=== PATIENT | male | born 1970 | race Two or more races ===

== ENCOUNTER 2021-02-20 20:28 | Inpatient (IN) | payer OTHER ==
[~2021-02-20] VITALS: Ht 172.7 cm; Wt 61.2 kg
--- NOTE | 2021-02-20 20:38 | NUR ---
PATIENT ER BED 8 C/O ABNORMAL LABSLOW HGB FROM [facility]. PATIENT'S EYES ARE OPEN, PATIENT IS NON RESPONSIVE TO VERBAL COMMANDS. PATIENT IS DNR. PATIENT IS BREATHING ON VENTILATOR W/ SETTINGS 16A/C 500TV 40% FIO02 5 PEEP. PATIENT IS CONNECTED TO THE RETAIL TEAM LEADER.
--- NOTE | 2021-02-20 20:57 | NUR ---
blood collected and sent to the lab
[2021-02-20 21:24] LABS: BASOPHILS % (AUTO) 0.3 % (0.0-2.0); LYMPHOCYTES # (AUTO) 1.5 /CMM (0.8-4.8); LYMPHOCYTES % (AUTO) 12.9 % (20.0-44.0); MEAN CORPUSCULAR HGB CONC 31 g/dl (31.0-36.0); MEAN CORPUSCULAR VOLUME 100 fL (80-96); MONOCYTES # (AUTO) 0.4 /CMM (0.1-1.30); MONOCYTES % (AUTO) 3.3 % (2.0-12.0); NEUTROPHILS # (AUTO) 9.7 /CMM (1.8-8.9); NEUTROPHILS % (AUTO) 80.5 % (43.0-81.0); PLATELET COUNT (AUTO) 200 /CMM (150-450)
[2021-02-20 21:30] LABS: HEMATOCRIT 20 % (39-51); RED BLOOD CELL COUNT(AUTO) 1.95 MIL/uL (4.5-6.0)
[2021-02-20 21:40] LABS: CARBON DIOXIDE 36 mmol/L (21-32); CHLORIDE 122 mmol/L (98-107); CREATININE 4.6 mg/dL (0.6-1.3); GLUCOSE 105 mg/dL (74-106)
[2021-02-20 21:42] LABS: ALBUMIN 1.9 g/dL (3.4-5.0); BILIRUBIN,DIRECT 0.2 mg/dL (0.0-0.2); BILIRUBIN,TOTAL 0.4 mg/dL (0.2-1.0); TOTAL PROTEIN, SERUM 7.4 g/dL (6.4-8.2)
[2021-02-20 21:46] LABS: BAND % (MANUAL) 9 % (0.0-5.0); CALCIUM, SERUM 13.4 mg/dL (8.5-10.1); EOSINOPHILS % (MANUAL) 3 % (0-4); LYMPHOCYTES % (MANUAL) 9 % (16-48); MONOCYTES % (MANUAL) 3 % (0-11.0); NEUTROPHILS % (MANUAL) 76 (42-76); POTASSIUM 7.3 mmol/L (3.5-5.1); SODIUM SERUM 165 mmol/L (136-145); UREA NITROGEN, BLOOD 190 mg/dL (7-18)
[2021-02-20] MEDS ORDERED: FUROSEMIDE 20 MG/2 ML VIAL ONE (21:58)
[2021-02-20] MEDS ORDERED: SODIUM BICARBONATE SYR 50 MEQ/50 ML DISP.SYRIN ONE (21:59)
[2021-02-20] MEDS ORDERED: SODIUM POLYSTYRENE SULFONATE 15 G/60 ML BOTTLE ONE (21:59)
[2021-02-20] MEDS ORDERED: SODIUM POLYSTYRENE SULFONATE 15 G/60 ML BOTTLE GT ONE (22:00)
[2021-02-20] MEDS ORDERED: CALCIUM CHLORIDE 1,000 MG/10 ML DISP.SYRIN IV ONE (22:00)
[2021-02-20] MEDS ORDERED: SODIUM BICARBONATE SYR 50 MEQ/50 ML DISP.SYRIN IV ONE (22:00)
[2021-02-20] MEDS ORDERED: FUROSEMIDE 40 MG/4 ML VIAL IV ONE (22:00)
[2021-02-20] MEDS ORDERED: CALCIUM CHLORIDE 1,000 MG/10 ML DISP.SYRIN ONE (22:06)
[2021-02-20] MEDS ORDERED: IV NS 0.9% 1,000 ML IV ONE (23:30)
[2021-02-21] VITALS (27 sets, daily range): BP systolic 45–132; BP diastolic 20–76
--- NOTE | 2021-02-21 00:35 | NUR ---
1 bag of PRBC RUNNING.
[2021-02-21] MEDS ORDERED: ACETAMINOPHEN 325 MG TABLET PO PRN (01:00)
[2021-02-21] MEDS ORDERED: MAGNESIUM HYDROXIDE 30 ML UDC PO PRN (01:00)
[2021-02-21] MEDS ORDERED: ZOLPIDEM TARTRATE 5 MG TABLET PO PRN (01:00)
[2021-02-21] MEDS ORDERED: HYDROCODONE/APAP 5/325MG TABLET PO PRN (01:00)
[2021-02-21] MEDS ORDERED: Z GUARD REMEDY 2 OZ OINT TP PRN (01:00)
[2021-02-21] MEDS ORDERED: MAG HYDROX/AL HYDROX/SIMETH 30 ML UDC PO PRN (01:00)
[2021-02-21] MEDS ORDERED: ONDANSETRON HCL/PF 4 MG/2 ML VIAL IVP PRN (01:00)
--- NOTE | 2021-02-21 01:22 | NUR ---
REPORT GIVEN TO TITA WILLS FOR KATJA.
[2021-02-21] MEDS ORDERED: VANCOMYCIN 1 GM in IV D5W 250ml IV ONE (01:30)
--- NOTE | 2021-02-21 01:40 | NUR ---
RECEIVED PT FROM ER VIA [facility] OBTUNDED ON TRACH/VENT SETTING PER MD, SPO2 98% NO SIGN OF SOB OR DISTRESS WITH ONGOING IPRBC TRANSFUSING VIA RFA #18 INFUSING WELL, SAFELY TRANSFER FROM [facility] TO BED V/S CHECKED AND RECORDED, HEAD TO TOE ASSESSMENT DONE WOUND NOTED AND DOCUMENTED, HOOKED TO TELE MONITOR WITH READING SINUS TACHY 100'S INITIAL ASSESSMENT DONE DUKES CATHETER INSERTED NOTED CLOUDY YELLOW WITH SEDIMENT URINE DRAINING VIA GRAVITY, BED ON LOWEST POSITION AND LOCKED SIDE RAILS UP X 2 CALL LIGHT WITHIN REACH WILL CONT TO MONITOR
[2021-02-21] MEDS ORDERED: VANCOMYCIN 1 GM VIAL ONE (02:22)
--- NOTE | 2021-02-21 04:00 | NUR ---
COMPLETED BLOOD TRANSFUSION WITH LATEST V/S 130/76 HR 102 TEMP 98 RR 19 NO SIGN OF ANY TRANSFUSION REACTION NOTED WILL CONT TO MONITOR
[2021-02-21] MEDS ORDERED: JEVITY 1.2 CAL 1,000 ML BOTTLE GT PRN ×2 (04:30→08:26)
[2021-02-21] MEDS ORDERED: EMTR1TAB12 GT (04:48)
[2021-02-21] MEDS ORDERED: THIA100T74 GT (04:48)
[2021-02-21] MEDS ORDERED: ASCO500T21 GT (04:48)
[2021-02-21] MEDS ORDERED: FERR325T23 GT (04:48)
[2021-02-21] MEDS ORDERED: DOCU100C36 GT (04:48)
[2021-02-21] MEDS ORDERED: MULT-754 GT (04:48)
[2021-02-21] MEDS ORDERED: CHLO473M5 MM (04:48)
[2021-02-21] MEDS ORDERED: DOLU50TA GT (04:48)
[2021-02-21] MEDS ORDERED: ERYTHROCIN OP (04:48)
[2021-02-21] MEDS ORDERED: [UNRECOGNIZED DRUG - OTHER] GT (04:48)
[2021-02-21] MEDS ORDERED: POLY17PO4 GT (04:48)
[2021-02-21] MEDS ORDERED: HEPA0.5D3 SQ (04:48)
[2021-02-21] MEDS ORDERED: FLUC200T8 GT (04:48)
[2021-02-21] MEDS ORDERED: CEFEPIME 2 GM in IV D5W 100 ML IV SCH (05:00)
[2021-02-21] MEDS ORDERED: CEFEPIME 2 GM in IV D5W 100 ML IV ONE (05:00)
[2021-02-21] MEDS ORDERED: CEFEPIME 1 GM VIAL ONE (05:55)
[2021-02-21 05:56] LABS: BASOPHILS % (AUTO) 0.3 % (0.0-2.0); EOSINOPHILS % (AUTO) 5.1 % (0.0-6.0); HEMATOCRIT 23 % (39-51); HEMOGLOBIN 7.2 g/dL (13.5-17.5); LYMPHOCYTES # (AUTO) 1.6 /CMM (0.8-4.8); LYMPHOCYTES % (AUTO) 13.9 % (20.0-44.0); MEAN CORPUSCULAR HGB CONC 31 g/dl (31.0-36.0); MEAN CORPUSCULAR VOLUME 96 fL (80-96); MONOCYTES # (AUTO) 0.3 /CMM (0.1-1.30); MONOCYTES % (AUTO) 2.4 % (2.0-12.0); NEUTROPHILS % (AUTO) 78.3 % (43.0-81.0); PLATELET COUNT (AUTO) 180 /CMM (150-450); RED BLOOD CELL COUNT(AUTO) 2.41 MIL/uL (4.5-6.0); WHITE BLOOD COUNT (AUTO) 11.5 K/uL (4.3-11.0)
[2021-02-21 06:37] LABS: CALCIUM, SERUM 12.8 mg/dL (8.5-10.1); CREATININE 4.7 mg/dL (0.6-1.3); PHOSPHORUS 7.7 mg/dL (2.5-4.9)
--- NOTE | 2021-02-21 07:40 | NUR ---
RN NOTES RECEIVED PATIENT IN BED, PATIENT IS OBTUNDED OPENS EYES. WITH NO SIGNS OF DISTRESS ON VET SETTINGS SHILEY #8 AC 16 TV 500 FIO2 40% PEEP 5 AND SPO2 100%. PT ON EXTERNAL TELE MONITOR WITH CURRENT READING ST 100'S. IVL UA AND R FA SL. G-TUBE INTACT FEEDING JEVITY 1.2 AT 40 ML/HR. SAFETY MEASURES IN PLACE: BED IN LOWEST LOCKED POSITION W/ SR UP X2, CALL LIGHT W/IN REACH. WILL CONTINUE TO MONITOR.
[2021-02-21 07:57] LABS: POTASSIUM 7.2 mmol/L (3.5-5.1)
[2021-02-21 07:58] LABS: MAGNESIUM 4.5 mg/dL (1.8-2.4)
[2021-02-21] MEDS ORDERED: SODIUM POLYSTYRENE SULFONATE 15 G/60 ML BOTTLE PO ONE (09:00)
[2021-02-21] MEDS ORDERED: INSULIN REGULAR, HUMAN 100 UNIT/ML 10 ML VIAL IV ONE ×2 (09:00→14:30)
[2021-02-21] MEDS ORDERED: ALBUTEROL FS 2.5 MG/3 ML VIAL.NEB NEB ONE ×2 (09:00→18:30)
[2021-02-21] MEDS ORDERED: Calcium Gluconate 1GM/10ML 4.65 MEQ in IV D5W 50 ML IV ONE (09:30)
[2021-02-21] MEDS ORDERED: IV 1/2NS 1000 ML 1,000 ML IV STA (09:36)
[2021-02-21] MEDS ORDERED: IV D5W 1,000 ML IV STA (09:36)
[2021-02-21 09:47] LABS: ABG BASE EXCESS 7.7 mmol/L; ABG OXYGEN SATURATION 96.5 % (92.0-98.5); ABG PCO2 44.7 mmHg (35.0-45.0); ABG PH 7.473 (7.350-7.450); ABG PO2 94.3 mmHg (75.0-100.0); AaDO2 139.5 mmHg; COHb 0.8 % (0.5-1.5); MetHb 0.3 % (0.0-1.5); O2Hb 95.4 % (94.0-97.0); PEEP,BG 5 cm H2O; SITE, ABG Right Radial; VT, ABG 500 mL
[2021-02-21] MEDS ORDERED: NEPRO 1,000 ML BOTTLE GT SCH (10:00)
[2021-02-21 13:25] LABS: CALCIUM, SERUM 12.3 mg/dL (8.5-10.1); CREATININE 4.9 mg/dL (0.6-1.3)
[2021-02-21 13:32] LABS: POTASSIUM 7.9 mmol/L (3.5-5.1)
[2021-02-21] MEDS: ALBUTEROL FS 2.5 MG/0.5 ML VIAL.NEB NEB SCH ×3 (13:51→19:49)
--- NOTE | 2021-02-21 14:10 | NUR ---
PER DR. OROZCO, RECEIVED TELEPHONE CONSENT FROM FAMILY MEMBER TO PROCEED WITH THE HD CATH.
--- NOTE | 2021-02-21 14:13 | NUR ---
CALLED DR. OROZCO FOR POTASSIUM CRITICAL LEVEL. ORDERS WERE GIVEN.
[2021-02-21] MEDS ORDERED: ALBUTEROL FS 2.5 MG/3 ML VIAL.NEB NEB STA (14:22)
[2021-02-21] MEDS ORDERED: DEXTROSE 50%-WATER 50 ML DISP.SYRIN IVP ONE ×3 (14:30→19:30)
[2021-02-21] MEDS ORDERED: Sodium Bicarbonate 100 MEQ in IV NS 0.9% 1,000 ML IV PRN (14:30)
--- NOTE | 2021-02-21 14:30 | NUR ---
GAVE BEDSIDE REPORT TO ICU NURSE ABHIJEET FOR CONTINUITY OF CARE WAS TRANSFERRED TO ICU VIA GURNEY.
[2021-02-21] MEDS ORDERED: SODIUM BICARBONATE SYR 50 MEQ/50 ML DISP.SYRIN IV STA (14:32)
--- NOTE | 2021-02-21 14:50 | NUR ---
RN NOTES RECEIVED PATIENT IN ICU ON BED, IN ROOM 261, PT IS VENT/ TRACH DEPENDENT, TOLERATING VENT SETTING WELL, O2 SAT WNL, T=100 AXILLARY, LOW BP NOTIFIED, ORDER RECEIVED FOR LEVO DRIP , ON TELE ST HR IN 110'S, DUKES DRAINING TO GRAVITY, L AND R ARM IV SITES CLEAN, DRY AND INTACT, GT INTACT, DR CORNELIO TILLEYFED REGARDING HD CATH PLACEMENT, SR UP X3, CALL LIGHT WITHIN EASY REACH , SAFETY MEASURES IN PLACE: BED IN LOWEST LOCKED POSITION W/ SR UP X3, WILL CONTINUE TO MONITOR.
[2021-02-21] MEDS ORDERED: INSULIN REGULAR, HUMAN 100 UNIT/ML 3 ML VIAL IV ONE (15:00)
[2021-02-21] MEDS ORDERED: NOREPINEPHRINE 8 MG in IV NS 0.9% 242 ML IV PRN (15:30)
--- NOTE | 2021-02-21 16:00 | NUR ---
LATE ENTRY EMERGENCY HD CATHETER INSERTED ON R FEMORAL SITE BY DR GRIMES .
--- NOTE | 2021-02-21 17:20 | NUR ---
ABHIJEET PLACED CALL TO HD COORDINATOR RE: EMERGENCY HD AND DISCUSSED LABS. TO SEND HD RN INDIGO.
[2021-02-21 17:42] LABS: CREATININE 5.1 mg/dL (0.6-1.3)
[2021-02-21] MEDS ORDERED: CEFEPIME 1 GM in IV D5W 50 ML IV SCH (18:00)
[2021-02-21 18:03] LABS: POTASSIUM 8.6 mmol/L (3.5-5.1)
--- NOTE | 2021-02-21 18:10 | NUR ---
REPORTED TO DR. OROZCO RE: CRITICAL RESULTS FOR NA-156, K-8.6 , BUN/CREA-184/5.1. ORDERS OBTAINED FOR NA BICARB 3AMPS, CONTINUOS ALBUTEROL TREATMENT FOR 20 MINUTES. ORDERS CARRIED OUT. CONTACTED LEONOR , HD COORDINATOR FOR EMERGENCY DIALYSIS.
[2021-02-21] MEDS ORDERED: ALBUTEROL SULFATE INH 18 GM HFA.AER.AD IH STA (18:28)
[2021-02-21] MEDS ORDERED: ALBUTEROL FS 2.5 MG/3 ML VIAL.NEB ONE (18:29)
[2021-02-21] MEDS ORDERED: SODIUM BICARBONATE SYR 50 MEQ/50 ML DISP.SYRIN IV ONE (18:30)
--- NOTE | 2021-02-21 19:00 | NUR ---
TOOL CARRIER. RECEIVED THE PT REST ON THE BED. TRACH TO VENT CONNECTED. SHILEY #8, AC 16,TV 500,FIO2 40%,PEEP 5. SAT 94%. [employer] WORKERS SHOWING S TACH .140. PT IS VERY UNSTABLE, DOES NOT FOLLOW COMMAND COMMANDS, NO RESPONDING PAIN FULL STIMULI. MARY RADIAL PULSE IS WEAK. ABDOMEN DISTENDED. GT FEEDING HELD. RESIDUAL 400ML. IV RT UPPER ARM PICC LINE, RT FEMORAL HD CATH. LEVOPHED 0.2MCG/KG/MIN, RUNNING. HOB ELEVATED, TEMPERATURE 101. .WILL CONTINUE TO MONITOR, WAITING FOR HD,
--- NOTE | 2021-02-21 19:00 | NUR ---
RN NOTES HD HAS NOT STARTED YET, DR OROZCO NOTIFED .
--- NOTE | 2021-02-21 19:27 | NUR ---
RN NOTES BG= 57, REPORT GIVEN TO AMADA SHIFT NURSE FOR CONTINUITY OF CARE , PT RECEIVING HD AT THIS TIME.
--- NOTE | 2021-02-21 19:30 | NUR ---
SEARCH ENGINE OPTIMIZATION MANAGER. HD STARTED. BLOOD PRESSURE DROPPED DOWN. NOTIFIED MD KASPER. NEW ORDER RECEIVED. ALBUMIN, AND ADDISON STARTED.
[2021-02-21] MEDS ORDERED: ALBUMIN 25% 12.5 GM in PREMIX 1 EA IV ONE (21:00)
[2021-02-21] MEDS ORDERED: NOREPINEPHRINE 32 MG in IV NS 0.9% 218 ML IV PRN (21:00)
[2021-02-21] MEDS ORDERED: PHENYLEPHRINE 100 MG in IV NS 0.9% 240 ML IV PRN (21:00)
--- NOTE | 2021-02-21 21:15 | NUR ---
MAIL ORDER BILLER. NOTIFIED [facility]. SPOKE PERSON MAGDA. RELEASED THE BODY. CASE NO #[id number]
--- NOTE | 2021-02-21 21:20 | NUR ---
Called to evaluate patient.Asystole per cardiac monitoring x 3 leads.No audible cardiac sounds on auscultation. Pulses not palpable.No signs of breathing.No response to painful or noxious stimuli.Pupils fixed and dilated.All of the above signs not compatible of life.Pronounce at 2114.
--- NOTE | 2021-02-21 21:25 | NUR ---
SCHOOL BUS TECHNICIAN NOTIFIED ADMITTING GEORGE AND NURSING LASER OPERATOR DAVON .
--- NOTE | 2021-02-21 21:30 | NUR ---
SCUBA DIVE TRAINING INSTRUCTOR. PT WAS DNR, PT HEART RATE WENT DOWN TO 30. NO BLOOD PRESSURE , DESATURATED, DIALYSIS STOPPED. THEN BECOME NO PULSE. PT AT 2114. NOTIFIED MD KASPER AND FAMILY BROTHER EB.
--- NOTE | 2021-02-21 21:40 | NUR ---
FEED CRUSHER OPERATOR. NOTIFIED [facility] . SPOKE WITH TODD. BODY RELEASED FROM [facility].{PT CAME IN THE HOSPITAL LESS THAN 24HOURS }
--- NOTE | 2021-02-21 23:51 | NUR ---
BOILERMAKER. FAMILY CAME. BROTHER SAID PT HAS BREATHING. HE CALLED 911. HE WANTS TO TRANSFER TO ANOTHER HOSPITAL.
--- NOTE | 2021-02-21 23:53 | NUR ---
TOBACCO FLAVORER. PT SISTER SIDDHARTHA CALLED AND [id number] , REGARDING PT BROTHER CALLED 911.FAMILY WILL PICC UP THE BODY. WITH IN 2 DAYS.
--- NOTE | 2021-02-21 23:56 | NUR ---
LANDFILL GAS COLLECTION OPERATOR.POST MORTEM CARE GIVEN. BODY SEND TO [facility].
== END 2021-02-21 21:15 | DRG 890 ==
LOC: ER 20:37 → TELE-TD 23:23 → ICU 02-21 14:45
PROVIDERS: ADMIT Student in an Organized Health Care Education/Training Program; ATTEND Student in an Organized Health Care Education/Training Program
PROC: 5A1945Z Respiratory Ventilation, 24-96 Consecutive Hours (ICD-10-PCS; principal; 2021-02-20)
PROC: 30233N1 Transfusion of Nonautologous Red Blood Cells into Peripheral Vein, Percutaneous Approach (ICD-10-PCS; 2021-02-20)
PROC: 5A1D70Z Performance of Urinary Filtration, Intermittent, Less than 6 Hours Per Day (ICD-10-PCS; 2021-02-21)
PROC: 06HY33Z Insertion of Infusion Device into Lower Vein, Percutaneous Approach (ICD-10-PCS; 2021-02-21)
PROC: 02HV33Z Insertion of Infusion Device into Superior Vena Cava, Percutaneous Approach (ICD-10-PCS; 2021-02-21)
PROC: B548ZZA Ultrasonography of Superior Vena Cava, Guidance (ICD-10-PCS; 2021-02-21)
DX: J95.851 Ventilator associated pneumonia (principal); B20 Human immunodeficiency virus [HIV] disease; A41.9 Sepsis, unspecified organism; G93.40 Encephalopathy, unspecified; E43 Unspecified severe protein-calorie malnutrition; R65.21 Severe sepsis with septic shock; Z99.11 Dependence on respirator [ventilator] status; R57.0 Cardiogenic shock; G91.9 Hydrocephalus, unspecified; L89.159 Pressure ulcer of sacral region, unspecified stage; J96.10 Chronic respiratory failure, unspecified whether with hypoxia or hypercapnia; Z93.0 Tracheostomy status; D64.9 Anemia, unspecified; R13.10 Dysphagia, unspecified; F02.80 Dementia in other diseases classified elsewhere, unspecified severity, without behavioral disturbance, psychotic disturbance, mood disturbance, and anxiety; F17.200 Nicotine dependence, unspecified, uncomplicated; Z93.1 Gastrostomy status; F03.90 Unspecified dementia, unspecified severity, without behavioral disturbance, psychotic disturbance, mood disturbance, and anxiety; Z86.61 Personal history of infections of the central nervous system; Z79.01 Long term (current) use of anticoagulants; Z79.899 Other long term (current) drug therapy; Y82.9 Unspecified medical devices associated with adverse incidents; Y92.9 Unspecified place or not applicable; K92.2 Gastrointestinal hemorrhage, unspecified; N18.9 Chronic kidney disease, unspecified; N17.9 Acute kidney failure, unspecified; Y84.8 Other medical procedures as the cause of abnormal reaction of the patient, or of later complication, without mention of misadventure at the time of the procedure; E83.52 Hypercalcemia; E87.5 Hyperkalemia; E87.0 Hyperosmolality and hypernatremia
CPT/HCPCS: 31720; 36415; 36600; 71045-TC; 80048-TC; 80061-TC; 80076-TC; 80202-TC; 82962-TC; 83735-TC; 84100-TC; 84484-TC; 85025-TC; 85730-TC; 86850-TC; 87040-TC; 87081-TC; 87186-TC; 94002-TC; 94003-TC; 94799-TC; 99082-TC; A4216; A6253; A6403; C1750; C1751; C9803; G0378; J0610; J0692; J1815; J1940; J2370; J3370; J3490; J7030; J7040; J7050; J7060; J7070; P9016-BL; P9047; U0003